=== PATIENT | male | born 1950 | race Caucasian/White ===

== ENCOUNTER → 2016-09-05 | Outpatient (CLI) | payer MEDICARE, BC ==
[~2016-09-05] MED LIST: ALMACONE 360 M360 ML PO; APRESOLINE 25MG25 MG PO; ASPIRIN 81M81 MG/TA2 PO; CALCIUM 600MG+D1 TAB PO; CATAPRES 0.1MG0.1 MG PO; COZAAR 50MG50 MG/TAB PO; DULCOLAX S10 MG/SUPP RC; FISH OIL 1000MG1 CAP PO; IMODIUM 2MG CAPS2 MG PO; K-DUR20 MEQ PO; LASIX 40MG TABL40 MG PO; LIPITOR 10MG10 MG PO; LOPRESSOR100 MG PO; MILK OF MA400 MG/52 PO; PLAVIX 75MG TAB75 MG PO; PRILOSEC 20MG20 MG PO; PRINIVIL40 MG PO; SUPER ENZYMES PO; TYLENOL 325MG325 MG PO; TYLENOL SU650 MG/SUP RC
[2016-09-05 17:36] LABS: PH 6 (5-8); SQUAMOUS EPITHELIAL 0-2 /hpf; URINE APPEARANCE Clear; URINE BACTERIA Rare /hpf; URINE BILIRUBIN Negative (NEGATIVE); URINE BLOOD Negative (NEGATIVE); URINE COLOR Straw; URINE GLUCOSE Negative (NEGATIVE); URINE KETONE Negative (NEGATIVE); URINE RBC 0-2 /hpf; URINE UROBILINOGEN Negative (NEGATIVE); URINE WBC None Seen /hpf
[2016-09-05 17:39] LABS: CALCIUM 9.7 mg/dL (8.4-10.2); CREATININE, serum 1.03 mg/dL (0.66-1.25); POTASSIUM 4.3 mmol/L (3.4-5.0)
== END ==
LOC: ZCOL.LAB 17:17
PROVIDERS: Nurse Practitioner Family
DX: E87.1 Hypo-osmolality and hyponatremia (principal)

== ENCOUNTER → 2016-09-27 | Outpatient (CLI) | payer MEDICARE, BC ==
[2016-09-27 15:50] LABS: CALCIUM 9.2 mg/dL (8.4-10.2); CREATININE, serum 0.91 mg/dL (0.66-1.25); POTASSIUM 4.3 mmol/L (3.4-5.0)
== END ==
LOC: ZCOL.LAB 15:18
PROVIDERS: Nurse Practitioner Family
DX: R60.0 Localized edema (principal)

== ENCOUNTER → 2017-08-20 | Outpatient (CLI) | payer MEDICARE, BC ==
[2017-08-20 09:41] LABS: CALCIUM 9.6 mg/dL (8.4-10.2); CREATININE, serum 0.78 mg/dL (0.66-1.25); POTASSIUM 4.3 mmol/L (3.4-5.0)
== END ==
LOC: ZCOL.LAB 09:28
PROVIDERS: Internal Medicine
DX: E87.1 Hypo-osmolality and hyponatremia (principal)

== ENCOUNTER → 2017-11-07 | Outpatient (CLI) | payer MEDICARE, BC | LOC: COL.VAS 09:26 | DX: R60.0 Localized edema (principal); M79.89 Other specified soft tissue disorders ==

== ENCOUNTER 2018-02-22 14:51 | Day surgery (SDC) | payer MEDICARE, BC ==
[~2018-02-22] VITALS: Ht 157.6 cm; Wt 71.0 kg
[2018-02-22 15:24] VITALS: BP 133/88; PULSE 82; TEMP 97.2
[2018-02-22] MEDS ORDERED: [UNRECOGNIZED DRUG - OTHER] PO (15:42)
[2018-02-22] MEDS ORDERED: PROBIOTIC FORMU1 CAP PO (15:42)
[2018-02-22] MEDS ORDERED: CARDI-OMEGA1000 MG PO (15:43)
[2018-02-22] MEDS ORDERED: OSCAL W/VIT D250 MG PO (15:43)
[2018-02-22] MEDS ORDERED: CATAPRES 0.1MG0.1 MG PO (15:44)
[2018-02-22] MEDS ORDERED: ASPIRIN E.C. 8181 MG PO (15:44)
[2018-02-22] MEDS ORDERED: LIPITOR 40MG TA40 MG PO (15:44)
[2018-02-22] MEDS ORDERED: FLONASEALLERGY NS (15:45)
[2018-02-22] MEDS ORDERED: LASIX 80MG TABL80 MG PO (15:46)
[2018-02-22] MEDS ORDERED: GLUCOSAMINE SU500 M2 PO (15:46)
[2018-02-22] MEDS ORDERED: MELATONIN5 M1 SL (15:47)
[2018-02-22] MEDS ORDERED: ZESTRIL40 MG PO (15:47)
[2018-02-22] MEDS ORDERED: ADVIL200 MG PO (15:47)
[2018-02-22] MEDS ORDERED: PRILOTC PO (15:48)
[2018-02-22] MEDS ORDERED: TOPROL XL 50MG50 MG PO (15:48)
[2018-02-22] MEDS ORDERED: PLAVIX 75MG TAB75 MG PO (15:50)
[2018-02-22] MEDS ORDERED: TYLENOL 325MG325 MG PO (15:52)
[2018-02-22 17:46] VITALS: BP 147/81; PULSE 108; TEMP 97.1
--- NOTE | 2018-02-22 17:46 | NUR ---
Pt returns from endo procedure. Pt ambulates from cart to recliner with RN assist. Monitors on and alarms set. Call light within reach. Report received from Lydia. Pt requests water. Pt states no pain or nausea. No family present.
[2018-02-22 18:00] VITALS: BP 136/91; PULSE 72
--- NOTE | 2018-02-22 18:05 | NUR ---
Pt taking food and drink well. No complications stated. Waiting on Dr. Watts for discharge.
--- NOTE | 2018-02-22 18:15 | NUR ---
Pt desires to use restroom. Pt ambulates to restroom with RN assist.
[2018-02-22 18:19] VITALS: BP 160/96; PULSE 73
--- NOTE | 2018-02-22 18:20 | NUR ---
Discharge instructions given to patient. Handed to him are a thank you card, discharge instructions, and diagnosis information. All questions answered to his satisfaction.
--- NOTE | 2018-02-22 18:27 | NUR ---
Pt transferred out of hospital via wheelchair and this RN to private vehicle driven by [facility] staff.
== END 2018-02-22 18:27 | disposition home or self-care (01) ==
LOC: SDCO 14:51
DX: Z12.11 Encounter for screening for malignant neoplasm of colon (principal); D12.5 Benign neoplasm of sigmoid colon; I10 Essential (primary) hypertension; I69.398 Other sequelae of cerebral infarction; H54.7 Unspecified visual loss; Z96.643 Presence of artificial hip joint, bilateral; Z96.611 Presence of right artificial shoulder joint; Z96.612 Presence of left artificial shoulder joint; Z79.82 Long term (current) use of aspirin; Z86.010 Personal history of colon polyps
CPT/HCPCS: J2704; J7120

== ENCOUNTER → 2018-07-01 | Outpatient (CLI) | payer MEDICARE, BC ==
[~2018-07-01] MED LIST changes: +ADVIL200 MG PO; +ASPIRIN E.C. 8181 MG PO; +CARDI-OMEGA1000 MG PO; +FLONASEALLERGY NS; +GLUCOSAMINE SU500 M2 PO; +LASIX 80MG TABL80 MG PO; +LIPITOR 40MG TA40 MG PO; +MELATONIN5 M1 SL; +OSCAL W/VIT D250 MG PO; +PRILOTC PO; +PROBIOTIC FORMU1 CAP PO; +TOPROL XL 50MG50 MG PO; +ZESTRIL40 MG PO; +[UNRECOGNIZED DRUG - OTHER] PO
[2018-07-01 19:38] LABS: BASO # 0.1 (0.0-0.2); BASO % 0.8 % (0.0-2.0); EOS # 0.9 (0.0-0.7); EOS % 9.4 % (0-4.0); GRAN # 5.1 (1.4-6.5); GRAN % 55.5 % (42.2-75.2); LYMPH # 2.5 (1.2-3.4); LYMPH % 26.9 % (20.0-51.0); MEAN CELL VOLUME 98 fl (80.0-100.0); MEAN CORPUSCULAR HEMOGLOBIN 33 pg (27.0-31.0); MEAN CORPUSCULAR HGB CONC 34 g/dl (33.0-37.0); MEAN PLATELET VOLUME 9.9 fl (7.4-10.4); MONO # 0.7 (0.1-0.6); MONO % 7.2 % (1.7-9.3); PLATELET COUNT 231 K/mm3 (130-400); RED BLOOD COUNT 3.64 M/mm3 (4.20-5.60)
[2018-07-01 19:39] LABS: HEMATOCRIT 35.6 % (42.0-52.0)
== END ==
LOC: ZCOL.LAB 17:07
PROVIDERS: Nurse Practitioner Family
DX: N17.9 Acute kidney failure, unspecified (principal)

== ENCOUNTER → 2018-07-19 | Outpatient (CLI) | payer MEDICARE, BC | LOC: COL.RAD 09:24 | DX: N17.9 Acute kidney failure, unspecified (principal) ==

== ENCOUNTER 2018-09-21 17:44 | Emergency (ER) | payer MEDICARE, BC ==
[~2018-09-21] VITALS: Ht 157.5 cm; Wt 75.0 kg
[2018-09-21 17:46] VITALS: TEMP 98.2
[2018-09-21 18:29] LABS: BASO # 0.1 (0.0-0.2); BASO % 0.3 % (0.0-2.0); EOS # 0.1 (0.0-0.7); EOS % 0.3 % (0-4.0); GRAN # 12.3 (1.4-6.5); GRAN % 84.8 % (42.2-75.2); HEMOGLOBIN 12.7 g/dl (13.5-18.0); LYMPH # 0.9 (1.2-3.4); LYMPH % 6.4 % (20.0-51.0); MEAN CELL VOLUME 91 fl (80.0-100.0); MEAN CORPUSCULAR HEMOGLOBIN 32 pg (27.0-31.0); MEAN CORPUSCULAR HGB CONC 35 g/dl (33.0-37.0); MEAN PLATELET VOLUME 8.5 fl (7.4-10.4); MONO # 1.1 (0.1-0.6); MONO % 7.7 % (1.7-9.3); PLATELET COUNT 254 K/mm3 (130-400); RED BLOOD COUNT 3.96 M/mm3 (4.20-5.60)
[2018-09-21 18:36] LABS: PROTHROMBIN TIME 11.3 SECONDS (9.7-12.8)
[2018-09-21 18:38] LABS: PARTIAL THROMBOPLASTIN TIME 30.4 SECONDS (26.0-37.0)
[2018-09-21 18:48] LABS: ALANINE AMINOTRANSFERASE 27 U/L (21-72); ALBUMIN 4.6 gm/dL (3.5-5.0); ALKALINE PHOSPHATASE 64 U/L (50-136); ANION GAP 16 mmol/L (7-16); AST,SGOT 31 U/L (15-37); BILIRUBIN,TOTAL 0.6 mg/dL (0.0-1.0); BLOOD UREA NITROGEN 18 mg/dL (9-20); CALCIUM 9.6 mg/dL (8.4-10.2); CARBON DIOXIDE 21 mmol/L (22-30); CHLORIDE 94 mmol/L (98-107); CREATINE KINASE 125 U/L (55-170); CREATININE, serum 1.22 (0.66-1.25); GLUCOSE 118 mg/dL (74-106); POTASSIUM 4.2 mmol/L (3.4-5.0); SODIUM 131 mmol/L (137-145); TOTAL PROTEIN 7.8 gm/dL (6.4-8.2)
[2018-09-21 18:53] VITALS: BP 130/73; PULSE 98
[2018-09-21 19:00] LABS: TROPONIN-I < 0.012 ng/mL (0.000-0.035)
== END 2018-09-21 19:12 | disposition short-term general hospital (02) ==
LOC: COL.ER 17:44
PROVIDERS: Emergency Medicine
DX: S02.32XA Fracture of orbital floor, left side, initial encounter for closed fracture (principal); S06.309A Unspecified focal traumatic brain injury with loss of consciousness of unspecified duration, initial encounter; I10 Essential (primary) hypertension; R40.2412 Glasgow coma scale score 13-15, at arrival to emergency department; Z86.73 Personal history of transient ischemic attack (TIA), and cerebral infarction without residual deficits; Z98.890 Other specified postprocedural states; Z79.51 Long term (current) use of inhaled steroids; Z79.02 Long term (current) use of antithrombotics/antiplatelets; W19.XXXA Unspecified fall, initial encounter; Y92.009 Unspecified place in unspecified non-institutional (private) residence as the place of occurrence of the external cause
CPT/HCPCS: J2405; J3010; J7030

== ENCOUNTER 2018-11-11 16:44 | Emergency (ER) | payer MEDICARE, BC ==
[~2018-11-11] VITALS: Ht 157.5 cm; Wt 63.6 kg
[2018-11-11 16:45] VITALS: TEMP 98.2
[2018-11-11] MEDS ORDERED: CORRECTIVE LAXAT5 MG (16:50)
[2018-11-11] MEDS ORDERED: ZOFRAN 4MG T4 MG/TAB PO (16:51)
[2018-11-11] MEDS ORDERED: HALDOL 2MG T2 MG/TAB (16:51)
[2018-11-11] MEDS ORDERED: SEROQUEL 2525 MG/TAB PO (16:52)
[2018-11-11 17:27] LABS: BASO # 0.1 (0.0-0.2); BASO % 0.7 % (0.0-2.0); EOS # 0.1 (0.0-0.7); GRAN # 4.3 (1.4-6.5); LYMPH # 1.9 (1.2-3.4); LYMPH % 27.3 % (20.0-51.0); MEAN CELL VOLUME 98 fl (80.0-100.0); MEAN CORPUSCULAR HGB CONC 33 g/dl (33.0-37.0); MEAN PLATELET VOLUME 8.7 fl (7.4-10.4); MONO # 0.6 (0.1-0.6); MONO % 8.7 % (1.7-9.3); PLATELET COUNT 393 K/mm3 (130-400); RED BLOOD COUNT 2.78 M/mm3 (4.20-5.60); REDCELL DISTRIBUTION WIDTH-CV 13.2 % (11.5-14.5)
[2018-11-11 17:30] LABS: HEMATOCRIT 27.1 % (42.0-52.0); HEMOGLOBIN 8.9 g/dl (13.5-18.0); MEAN CORPUSCULAR HEMOGLOBIN 32 pg (27.0-31.0)
[2018-11-11 17:31] LABS: PROTHROMBIN TIME 12.1 SECONDS (9.7-12.8)
[2018-11-11 17:38] LABS: ALANINE AMINOTRANSFERASE < 6 U/L (21-72); ALBUMIN 3.8 gm/dL (3.5-5.0); ALKALINE PHOSPHATASE 63 U/L (50-136); ANION GAP 8 mmol/L (7-16); AST,SGOT 16 U/L (15-37); BILIRUBIN,TOTAL 0.2 mg/dL (0.0-1.0); BLOOD UREA NITROGEN 11 mg/dL (9-20); CALCIUM 8.2 mg/dL (8.4-10.2); CARBON DIOXIDE 29 mmol/L (22-30); CHLORIDE 102 mmol/L (98-107); CREATININE, serum 0.67 (0.66-1.25); GLUCOSE 115 mg/dL (74-106); SODIUM 139 mmol/L (137-145); TOTAL PROTEIN 6.8 gm/dL (6.4-8.2)
[2018-11-11 17:46] LABS: C-REACTIVE PROTEIN 0.5 mg/dL (0.0-0.9)
[2018-11-11 18:21] VITALS: BP 148/90; PULSE 92
== END 2018-11-11 18:27 | disposition home or self-care (01) ==
LOC: COL.ER 16:44
PROVIDERS: Family Medicine
DX: D64.9 Anemia, unspecified (principal); R20.2 Paresthesia of skin; Z86.73 Personal history of transient ischemic attack (TIA), and cerebral infarction without residual deficits

== ENCOUNTER → 2019-02-07 | Outpatient (CLI) | payer MEDICARE, BC ==
[~2019-02-07] MED LIST changes: +CORRECTIVE LAXAT5 MG; +HALDOL 2MG T2 MG/TAB; +SEROQUEL 2525 MG/TAB PO; +ZOFRAN 4MG T4 MG/TAB PO
[2019-02-07 14:48] LABS: CALCIUM 9.3 mg/dL (8.4-10.2); CREATININE, serum 1.1 (0.66-1.25); POTASSIUM 4.7 mmol/L (3.4-5.0)
== END ==
LOC: ZCOL.LAB 14:33
PROVIDERS: Internal Medicine
DX: I51.9 Heart disease, unspecified (principal)

== ENCOUNTER → 2019-04-01 | Outpatient (CLI) | payer MEDICARE, BC ==
[2019-04-01 07:29] LABS: ALBUMIN 4.4 gm/dL (3.5-5.0); BILIRUBIN,TOTAL 0.5 mg/dL (0.0-1.0); CALCIUM 9.5 mg/dL (8.4-10.2); CHOLESTEROL RISK RATIO 2.9; CREATININE, serum 0.82 (0.66-1.25); POTASSIUM 4.6 mmol/L (3.4-5.0); TOTAL PROTEIN 7.3 gm/dL (6.4-8.2)
== END ==
LOC: ZCOL.LAB 06:45
PROVIDERS: Internal Medicine
DX: E78.5 Hyperlipidemia, unspecified (principal); R79.89 Other specified abnormal findings of blood chemistry

== ENCOUNTER → 2019-07-03 | Outpatient (CLI) | payer MEDICARE, BC ==
[2019-07-03 15:42] LABS: CALCIUM 9.7 mg/dL (8.4-10.2); CREATININE, serum 1.17 (0.66-1.25); POTASSIUM 4.9 mmol/L (3.4-5.0)
== END ==
LOC: ZCOL.LAB 13:14
PROVIDERS: Internal Medicine
DX: R79.89 Other specified abnormal findings of blood chemistry (principal)

== ENCOUNTER → 2019-09-12 | Outpatient (CLI) | payer MEDICARE, BC | LOC: ZCOL.LAB 10:27 | DX: I51.9 Heart disease, unspecified (principal) ==

== ENCOUNTER → 2019-12-12 | Outpatient (CLI) | payer MEDICARE, BC ==
[2019-12-12 08:33] LABS: BASO % 0.5 % (0.0-2.0); EOS # 0.1 (0.0-0.7); EOS % 1.1 % (0-4.0); GRAN % 60.4 % (42.2-75.2); HEMOGLOBIN 11.5 g/dl (13.5-18.0); LYMPH # 2.4 (1.2-3.4); LYMPH % 29.1 % (20.0-51.0); MEAN CELL VOLUME 97 fl (80.0-100.0); MEAN CORPUSCULAR HEMOGLOBIN 31 pg (27.0-31.0); MEAN CORPUSCULAR HGB CONC 32 g/dl (33.0-37.0); MEAN PLATELET VOLUME 11.3 fl (7.4-10.4); MONO # 0.7 (0.1-0.6); MONO % 8.7 % (1.7-9.3); PLATELET COUNT 128 K/mm3 (130-400); RED BLOOD COUNT 3.71 M/mm3 (4.20-5.60); REDCELL DISTRIBUTION WIDTH-CV 12.3 % (11.5-14.5)
[2019-12-12 08:34] LABS: HEMATOCRIT 35.8 % (42.0-52.0)
[2019-12-12 08:40] LABS: ALBUMIN 4.7 gm/dL (3.5-5.0); BILIRUBIN,TOTAL 0.5 mg/dL (0.0-1.0); CALCIUM 9.3 mg/dL (8.4-10.2); CHOLESTEROL RISK RATIO 2.6; CREATININE, serum 1.44 (0.66-1.25); POTASSIUM 4.1 mmol/L (3.4-5.0); TOTAL PROTEIN 7.4 gm/dL (6.4-8.2)
[2019-12-12 09:10] LABS: THYROID STIMULATING HORMONE 1.17 uIU/mL (0.465-4.680)
== END ==
LOC: ZCOL.LAB 07:27
PROVIDERS: Internal Medicine
DX: E78.2 Mixed hyperlipidemia (principal)

== ENCOUNTER → 2020-03-23 | Outpatient (CLI) | payer MEDICARE, BC | LOC: ZCOL.LAB 12:27 | DX: N39.0 Urinary tract infection, site not specified (principal) ==

== ENCOUNTER → 2020-03-23 | Outpatient (CLI) | payer MEDICARE, BC ==
[2020-03-23 12:34] LABS: BASO % 0.4 % (0.0-2.0); EOS # 0.1 (0.0-0.7); EOS % 1.6 % (0-4.0); GRAN # 3.8 (1.4-6.5); GRAN % 56.1 % (42.2-75.2); HEMATOCRIT 37.2 % (42.0-52.0); LYMPH # 2.3 (1.2-3.4); LYMPH % 33.8 % (20.0-51.0); MEAN CELL VOLUME 101 fl (80.0-100.0); MEAN CORPUSCULAR HEMOGLOBIN 32 pg (27.0-31.0); MEAN CORPUSCULAR HGB CONC 32 g/dl (33.0-37.0); MEAN PLATELET VOLUME 11.2 fl (7.4-10.4); MONO # 0.5 (0.1-0.6); MONO % 7.8 % (1.7-9.3); PLATELET COUNT 158 K/mm3 (130-400); REDCELL DISTRIBUTION WIDTH-CV 12.2 % (11.5-14.5)
[2020-03-23 12:42] LABS: ALBUMIN 4.4 gm/dL (3.5-5.0); BILIRUBIN,TOTAL 0.4 mg/dL (0.0-1.0); CALCIUM 9.6 mg/dL (8.4-10.2); CREATININE, serum 1.55 (0.66-1.25); POTASSIUM 4.6 mmol/L (3.4-5.0); TOTAL PROTEIN 7.1 gm/dL (6.4-8.2)
[2020-03-23 13:01] LABS: PH 5 (5-8); SQUAMOUS EPITHELIAL None Seen /hpf; URINE APPEARANCE Clear; URINE BACTERIA None Seen /hpf; URINE BILIRUBIN Negative (NEGATIVE); URINE BLOOD Negative (NEGATIVE); URINE COLOR Yellow; URINE GLUCOSE Negative (NEGATIVE); URINE KETONE Negative (NEGATIVE); URINE LEUKOCYTE ESTERASE Negative (NEGATIVE); URINE NITRATE Negative (NEGATIVE); URINE PROTEIN(semi-quant) Negative (NEGATIVE); URINE RBC 0-2 /hpf; URINE UROBILINOGEN Negative (NEGATIVE)
[2020-03-23 13:14] LABS: COLLECTION METHOD CLEAN CATCH
== END | disposition still patient (30) ==
LOC: ZCOL.LAB 08:00
PROVIDERS: Internal Medicine
DX: N39.0 Urinary tract infection, site not specified (principal); I10 Essential (primary) hypertension